=== PATIENT | female | born 1975 | race Caucasian/White ===

== ENCOUNTER → 2017-03-04 | Outpatient (CLI) | payer BC | LOC: MC.RAD 10:00 | DX: Z12.31 Encounter for screening mammogram for malignant neoplasm of breast (principal) ==

== ENCOUNTER → 2018-09-03 | Outpatient (CLI) | payer BC | LOC: MC.RAD 14:11 | DX: Z12.31 Encounter for screening mammogram for malignant neoplasm of breast (principal) ==

== ENCOUNTER 2019-05-05 23:40 | Emergency (ER) | payer BC ==
[~2019-05-05] VITALS: Ht 167.6 cm; Wt 65.9 kg
[2019-05-05 23:48] VITALS: TEMP 98.3
[2019-05-05] MEDS ORDERED: PREDNISONE20 MG PO (23:56)
[2019-05-06 00:40] LABS: BASO % 0.3 % (0.0-2.0); EOS % 0.1 % (0-4.0); GRAN # 5.4 (1.4-6.5); GRAN % 67.9 % (42.2-75.2); HEMATOCRIT 37.4 % (37.0-47.0); HEMOGLOBIN 12.7 g/dl (12.5-16.0); LYMPH % 24.6 % (20.0-51.0); MEAN CELL VOLUME 88 fl (80.0-100.0); MEAN CORPUSCULAR HEMOGLOBIN 30 pg (27.0-31.0); MEAN CORPUSCULAR HGB CONC 34 g/dl (33.0-37.0); MEAN PLATELET VOLUME 10.8 fl (7.4-10.4); MONO # 0.5 (0.1-0.6); MONO % 6.8 % (1.7-9.3); PLATELET COUNT 243 K/mm3 (130-400); RED BLOOD COUNT 4.24 M/mm3 (4.10-5.30); REDCELL DISTRIBUTION WIDTH-CV 12.4 % (11.5-14.5)
[2019-05-06 00:55] LABS: ALANINE AMINOTRANSFERASE 13 U/L (9-52); ALBUMIN 4.5 gm/dL (3.5-5.0); ALKALINE PHOSPHATASE 61 U/L (50-136); ANION GAP 10 mmol/L (7-16); AST,SGOT 22 U/L (15-37); BILIRUBIN,TOTAL 0.2 mg/dL (0.0-1.0); BLOOD UREA NITROGEN 13 mg/dL (7-17); CALCIUM 9.2 mg/dL (8.4-10.2); CARBON DIOXIDE 24 mmol/L (22-30); CHLORIDE 108 mmol/L (98-107); CREATININE, serum 0.69 (0.52-1.25); GLUCOSE 93 mg/dL (74-106); POTASSIUM 3.3 mmol/L (3.4-5.0); SODIUM 142 mmol/L (137-145)
[2019-05-06 00:59] LABS: C-REACTIVE PROTEIN < 0.5 mg/dL (0.0-0.9)
[2019-05-06 01:58] VITALS: BP 102/56; PULSE 92
[2019-05-07] MEDS ORDERED: PROAIR HFA0.09 MG/AC IH (12:12)
[2019-05-07] MEDS ORDERED: ATIVAN 1MG T1 MG/TAB PO (15:32)
== END 2019-05-06 01:59 | disposition home or self-care (01) ==
LOC: COL.ER 23:40
PROVIDERS: Emergency Medicine
DX: R06.02 Shortness of breath (principal)
CPT/HCPCS: J2930; J7030

== ENCOUNTER 2019-05-07 11:28 | Emergency (ER) | payer BC ==
[~2019-05-07] VITALS: Ht 167.6 cm; Wt 65.9 kg
[~2019-05-07 11:28] MED LIST: PREDNISONE20 MG PO
[2019-05-07] MEDS ORDERED: PROAIR HFA0.09 MG/AC IH (12:12)
[2019-05-07 15:05] LABS: BASO % 0.2 % (0.0-2.0); GRAN # 4.7 (1.4-6.5); GRAN % 84.1 % (42.2-75.2); HEMATOCRIT 40.7 % (37.0-47.0); HEMOGLOBIN 13.2 g/dl (12.5-16.0); LYMPH # 0.7 (1.2-3.4); LYMPH % 13.2 % (20.0-51.0); MEAN CELL VOLUME 91 fl (80.0-100.0); MEAN CORPUSCULAR HEMOGLOBIN 30 pg (27.0-31.0); MEAN CORPUSCULAR HGB CONC 32 g/dl (33.0-37.0); MEAN PLATELET VOLUME 11.7 fl (7.4-10.4); MONO # 0.1 (0.1-0.6); PLATELET COUNT 214 K/mm3 (130-400); RED BLOOD COUNT 4.48 M/mm3 (4.10-5.30); REDCELL DISTRIBUTION WIDTH-CV 12.9 % (11.5-14.5)
[2019-05-07 15:14] LABS: ALBUMIN 4.2 gm/dL (3.5-5.0); BILIRUBIN,TOTAL 0.3 mg/dL (0.0-1.0); CALCIUM 8.9 mg/dL (8.4-10.2); CREATININE, serum 0.68 (0.52-1.25); POTASSIUM 3.2 mmol/L (3.4-5.0); TOTAL PROTEIN 7.5 gm/dL (6.4-8.2)
[2019-05-07] MEDS ORDERED: ATIVAN 1MG T1 MG/TAB PO (15:32)
[2019-05-07 16:15] VITALS: BP 101/66; PULSE 74; TEMP 98.1
== END 2019-05-07 16:15 | disposition home or self-care (01) ==
LOC: COL.ER 11:28
PROVIDERS: Physician Assistant
DX: F41.9 Anxiety disorder, unspecified (principal); R06.00 Dyspnea, unspecified; Z87.01 Personal history of pneumonia (recurrent)
CPT/HCPCS: J2060; J7030; Q9967

== ENCOUNTER → 2021-07-17 | Outpatient (CLI) | payer BC ==
[~2021-07-17] MED LIST changes: +ATIVAN 1MG T1 MG/TAB PO; +PROAIR HFA0.09 MG/AC IH
== END ==
LOC: MC.RAD 10:07
DX: Z12.31 Encounter for screening mammogram for malignant neoplasm of breast (principal)

== ENCOUNTER 2022-08-08 09:21 | Day surgery (SDC) | payer BC ==
[~2022-08-08] VITALS: Ht 167.6 cm; Wt 68.3 kg
[2022-08-08] MEDS ORDERED: TESTOSTERONE PO (10:25)
[2022-08-08] MEDS ORDERED: PROMETRIUM100 MG PO (10:25)
[2022-08-08 10:41] VITALS: BP 99/71; PULSE 80; TEMP 97.8
[2022-08-08 12:45] VITALS: BP 96/59; PULSE 78; TEMP 97.4
[2022-08-08 13:00] VITALS: BP 101/66; PULSE 65
[2022-08-08 13:15] VITALS: BP 103/70; PULSE 66
--- NOTE | 2022-08-08 13:45 | NUR ---
1245: PATIENT TO BAY 6 PER CART FROM ENDO SUITE. REPORT RECEIVED. VS STABLE. PATIENT GIVEN CRACKERS, APPLESAUCE AND WATER. BREATHING EVEN AND UNLABORED. PATIENT DENIES ANY NEEDS AT THIS TIME. CALL LIGHT IN REACH. AT BEDSIDE. 1255: DR. SUGGS IN TO SEE PATIENT AT THIS TIME. 1300: PATIENT TOLERATING FOOD AND WATER WELL. VS REMAIN STABEL. NO CONCERNS NOTED AT THIS TIME. CALL LIGHT IN REACH. 1315: VS REMAIN STABLE. BREATHING REMAINS EVEN AND UNLABORED. PATIENT HAS NO CONCERNS AT THIS TIME. 1320: DISCHARGE EDUCATION COMPLETED. PATIENT STATED UNDERSTANDING OF INSTRUCTIONS. DISCHARGE PAPERWORK GIVEN TO PATIENT. IV DC'D AT THIS TIME. PATIENT DENIES ANY ASSISTANCE WITH DRESSING. 1340: PATIENT OFF UNIT VIA WHEEL CHAIR. PATIENT DISCHARGED TO HOME WITH PER PERSONAL VEHICLE.
== END 2022-08-08 13:40 | disposition home or self-care (01) ==
LOC: SDCO 09:21
DX: Z12.11 Encounter for screening for malignant neoplasm of colon (principal); Z80.0 Family history of malignant neoplasm of digestive organs
CPT/HCPCS: J2704; J7120

== ENCOUNTER → 2022-09-07 | Outpatient (CLI) | payer BC ==
[~2022-09-07] MED LIST changes: +PROMETRIUM100 MG PO; +TESTOSTERONE PO
== END ==
LOC: MC.RAD 10:47
DX: R92.2 Inconclusive mammogram (principal)

== ENCOUNTER → 2023-09-06 | Outpatient (CLI) | payer BC | LOC: MC.RAD 10:45 | DX: Z12.31 Encounter for screening mammogram for malignant neoplasm of breast (principal) ==